=== PATIENT | female | born 1945 | race Caucasian/White ===

== ENCOUNTER → 2019-07-03 | Emergency (ER) | payer OTHER ==
[~2019-07-03] VITALS: Ht 167.6 cm; Wt 77.1 kg
== END | disposition home or self-care (01) ==
LOC: ER 05:08
DX: S27.0XXA Traumatic pneumothorax, initial encounter (principal); W01.198A Fall on same level from slipping, tripping and stumbling with subsequent striking against other object, initial encounter; Y93.89 Activity, other specified; Y92.091 Bathroom in other non-institutional residence as the place of occurrence of the external cause; Y99.8 Other external cause status

== ENCOUNTER 2019-07-14 10:23 | Outpatient (CLI) | payer OTHER | END 2019-07-14 11:00 | disposition home or self-care (01) | LOC: TOM 10:23 | DX: S27.0XXA Traumatic pneumothorax, initial encounter (principal) ==

== ENCOUNTER 2019-07-19 09:26 | Outpatient (CLI) | payer OTHER | END 2019-07-19 09:30 | disposition home or self-care (01) | LOC: RAD 09:26 | DX: S27.0XXA Traumatic pneumothorax, initial encounter (principal) ==